=== PATIENT | female | born 1955 | race Caucasian/White ===

== ENCOUNTER 2017-07-04 14:30 | Inpatient (IN) | payer BC, OTHER ==
[~2017-07-04] VITALS: Ht 162.6 cm; Wt 72.6 kg
--- NOTE | 2017-07-04 18:15 | NUR ---
PRE-ASSESSMENT NOTE: PT IS ALERT AND ORIENTED AT THIS TIME. V/S WNL PT AGITATED AT THIS TIME, D/T INTAKE PROCESS AND PROCEDURE. PT IS UPSET ABOUT NOT BEING ABLE TO HAVE PERSONAL BELONGINGS WITH HER IN HER ROOM. PT IS ABLE TO SIGN CONSENT. EXPLAINED UNIT POLICIES AND PROCEDURES
[2017-07-04 19:43] LABS: *AMPHETAMINE, URINE NEGATIVE (NEGATIVE); *BARBITURATE, URINE NEGATIVE (NEGATIVE); *CANNABINOID, URINE NEGATIVE (NEGATIVE); *COCCAINE, URINE NEGATIVE (NEGATIVE); *OPIATE, URINE POSITIVE (NEGATIVE); *PHENCYCLIDINE SCREEN,URINE NEGATIVE (NEGATIVE)
[2017-07-04] MEDS ORDERED: CLONIDINE HCL 0.1 MG TABLET PO PRN (19:45)
[2017-07-04] MEDS ORDERED: LOPERAMIDE HCL 2 MG CAPSULE PO PRN ×2 (19:45)
[2017-07-04] MEDS ORDERED: ACETAMINOPHEN 325 MG TABLET PO PRN (19:45)
[2017-07-04] MEDS ORDERED: DICYCLOMINE HCL 20 MG TABLET PO PRN (19:45)
[2017-07-04] MEDS ORDERED: MIRALAX 17 GM POWD.PACK PO PRN (19:45)
[2017-07-04] MEDS ORDERED: diphenhydrAMINE 50 MG CAPSULE PO PRN (19:45)
[2017-07-04] MEDS ORDERED: HYDROXYZINE PAMOATE 25 MG CAPSULE PO PRN (19:45)
[2017-07-04] MEDS ORDERED: MAG HYDROX/AL HYDROX/SIMETH 30 ML LIQUID UDC PO PRN (19:45)
[2017-07-04] MEDS ORDERED: MAGNESIUM HYDROXIDE 30 ML LIQUID UDC PO PRN (19:45)
[2017-07-04] MEDS ORDERED: IBUPROFEN 400 MG TABLET PO PRN (19:45)
[2017-07-04 20:00] VITALS: BP 151/92
--- NOTE | 2017-07-04 20:00 | NUR ---
ADMISSION NOTE COWS:13 Pt arrived ambulatory from [facility] Intake to the third floor accompanied by a GAMBLING FLOOR SUPERVISOR at 1827. Pt is a 62 year old female admitted on 07/04/17 for Opiate dependency. Pt is full code with NKA. Pt reports a PMHX of neuropathy, diabetes type II, and rheumatoid arthritis. Pt brought in home medications which have been reconciled. Pt reports having a PCP in [place] by the name of Dr. Batres. She denies a history of seizures. She reports that she was at a Rehab for two weeks but unable to recall when. She was able to achieve one year of sobriety. Pt verbalized that she is here for Percocet dependency. She describes her current use as : 1. Percocet 10/325 (10 pills) daily x5 years. Last dose: 10 pills on 07/02/17. She describes her withdrawal symptoms as "sweating, chills, nausea, and diarrhea." Upon assessment, pt is alert and oriented to person, place, time and situation. Pt is restless, anxious and agitated, but cooperative. Speech is clear and audible. Heart rate is regular. Pt denies any chest pain or SOB. PERRLA, breathing is even and unlabored, lung sounds clear. Abdomen is soft and non-distended, bowel sounds present. Pt reports BM regular. Last BM 07/04/17. Pt's skin is warm, dry and intact. Pt noted with Right foot scar from breaking ankle 6 years ago, and left foot great amputation. Pt was apprehensive to remove socks for assessment / pictures of feet and became anxious and agitated. Pt was oriented to room and unit. made aware of pt's admission. Pt is safe with bed locked in lowest position, refused side rails, call light within reach. Will continue to monitor.
[2017-07-04] MEDS ORDERED: INSU100V11 (20:12)
[2017-07-04] MEDS ORDERED: TRIA80OI TP (20:12)
[2017-07-04] MEDS ORDERED: AMIT100T2 PO (20:12)
[2017-07-04] MEDS ORDERED: GABA800T2 PO (20:12)
[2017-07-04] MEDS ORDERED: SILV50CR TP (20:12)
[2017-07-04] MEDS: BUPRENORPHINE HCL 2 MG TAB.SUBL SL PRN (20:48)
--- NOTE | 2017-07-04 20:48 | NUR ---
PRN SUBUTEX Pt complains of chills, sweats, and body aches. COWS:13. PRN Subutex 4m SL administered as ordered. Breathing even and unlabored, safety measures in place. Will monitor effectiveness.
--- NOTE | 2017-07-04 20:50 | NUR ---
MD Communication: Patient has home medications and requests administration tonight. Received order from Dr Presley to continue Gabapentin 800mg QID. Received order from Dr Waite to continue Amitriptyline 100mg HS. Orders noted and carried out; orders entered on behalf of MD's as they are without computer access.
[2017-07-04] MEDS ORDERED: AMITRIPTYLINE HCL 50 MG TABLET PO SCH (21:00)
--- NOTE | 2017-07-04 21:48 | NUR ---
PRN SUBUTEX REASSESSMENT PRN Subutex effective. Pt reports decrease in withdrawal symptoms as evidenced by COWS:7. Breathing even and unlabored, safety measures in place. Will monitor.
[2017-07-04 21:57] LABS: ALANINE AMINOTRANSFERASE 12 U/L (14-59); ALKALINE PHOSPHATASE 127 U/L (50-136); ASPARTATE AMINOTRANSFERASE 17 U/L (15-37); BILIRUBIN,TOTAL 0.4 mg/dL (0.2-1.0); CARBON DIOXIDE 35 mmol/L (21-32); CHLORIDE 97 mmol/L (98-107); CREATININE 1.1 mg/dL (0.6-1.3); GLUCOSE 250 mg/dL (74-106); MAGNESIUM 1.7 mg/dL (1.8-2.4); POTASSIUM 4.1 mmol/L (3.5-5.1); TOTAL PROTEIN, SERUM 8.9 g/dL (6.4-8.2); UREA NITROGEN, BLOOD 13 mg/dL (7-18)
[2017-07-04] MEDS: GABAPENTIN 400 MG CAPSULE PO SCH (21:57)
[2017-07-04 21:59] LABS: BASOPHILS % (AUTO) 0.6 % (0.0-2.0); EOSINOPHILS # (AUTO) 0.2 K/uL (0.0-0.7); EOSINOPHILS % (AUTO) 2.6 % (0.0-7.0); HEMATOCRIT 37.2 % (37-47); HEMOGLOBIN 12.4 G/DL (12.0-16.0); LYMPHOCYTES % (AUTO) 24.8 % (20.5-51.5); MEAN CORPUSCULAR HEMOGLOBIN 30.6 UUG (27.0-31.0); MEAN CORPUSCULAR HGB CONC 33 g/dL (32.0-37.0); MONOCYTES # (AUTO) 0.4 K/UL (0.1-1.30); MONOCYTES % (AUTO) 4.3 % (0.0-11.0); NEUTROPHILS # (AUTO) 5.6 K/UL (1.8-8.9); NEUTROPHILS % (AUTO) 67.7 % (38.5-71.5); PLATELET COUNT (AUTO) 403 K/UL (150-450); RED BLOOD CELL COUNT(AUTO) 4.05 MIL/UL (4.2-5.4); WHITE BLOOD COUNT (AUTO) 8.2 K/UL (4.0-11.2)
[2017-07-04 22:01] LABS: ETHANOL < 3 MG/DL (0-0)
[2017-07-04] MEDS: METHOCARBAMOL 750 MG TABLET PO PRN (23:15)
--- NOTE | 2017-07-04 23:15 | NUR ---
PRN ROBAXIN Pt complains of body aches 07/24. PRN Robaxin administered as ordered. Breathing is even and unlabored. Safety measures in place. Will continue to monitor.
[2017-07-05] VITALS: BP 135/82
[2017-07-05] MEDS ORDERED: DEXTROSE 50% 50 ML DISP.SYRIN IV PRN
--- NOTE | 2017-07-05 00:15 | NUR ---
PRN ROBAXIN REASSESSMENT PRN medication effective. Pt lying in bed with eyes closed noted to be asleep. Respirations 16, breathing even and unlabored. Safety measures in place. Will monitor.
[2017-07-05] MEDS: INSULIN REGULAR, HUMAN 300 UNITS/3 ML VIAL SQ PRN ×2 (00:23→20:11)
--- NOTE | 2017-07-05 00:23 | NUR ---
ACCU CHECK 0000 BS: 255. Pt received 6 units of Humulin per sliding scale. Pt tolerated well. Will continue to monitor.
[2017-07-05] MEDS ORDERED: INSULIN REGULAR, HUMAN 300 UNIT/3 ML VIAL ONE (00:24)
[2017-07-05] MEDS ORDERED: INSU100I19 SQ (03:44)
[2017-07-05 04:30] VITALS: BP 139/85
[2017-07-05] MEDS: ONDANSETRON ODT 4 MG TAB.RAPDIS SL PRN ×2 (05:36→20:29)
[2017-07-05] MEDS: BUPRENORPHINE HCL 2 MG TAB.SUBL SL PRN (05:36)
--- NOTE | 2017-07-05 05:36 | NUR ---
PRN SUBUTEX/PRN ZOFRAN Pt complains of nausea, body aches, joint pain, agitation, and restlessness. COWS:12. PRN Zofran and Subutex administered as ordered. Breathing even and unlabored, safety measures in place. Will monitor.
--- NOTE | 2017-07-05 06:36 | NUR ---
PRN SUBUTEX/ZOFRAN REASSESSMENT PRN medications effective. Pt reports decrease in nausea. COWS: 8. Breathing even and unlabored, safety measures in place. Will monitor.
--- NOTE | 2017-07-05 07:07 | NUR ---
END OF SHIFT Pt is a 62 year old female admitted on 07/04/17 for Percocet dependency. Pt is full code with NKA. She reports a PMHx of neuropathy, diabetes type II, and rheumatoid arthritis. At 2048 she received PRN Subutex for COWS:13, at 2315 she received PRN Robaxin, and at 0553 she received PRN Zofran and Subutex for COWS 12. At 0000 her BS was 255. She received 6 units of Humulin and tolerated well. She slept a total of 6 hrs, Intake: 250 mL, Void: x1, BM:0, COWS:13. Pt remains alert and oriented x4, breathing is even and unlabored, safety measures in place. Endorsed to oncoming shift.
--- NOTE | 2017-07-05 07:30 | NUR ---
START OF SHIFT Pt is a 62 yr old female, A&Ox3. Pt was admitted on 07/04/17 for Opiate Dependence and is currently on Subutex PRN for s/s of w/d until further evaluation. Pt received Subutex PRN x2 during the night for s/s of w/d. Medication was mildly effective. Last COWS score was 12 at 0536. Pt slept for 6 hrs. Pt has PMH of DM II. Pt is on BS check ACHS. Pt is currently in bed, resting with respirations even and unlabored. Pt is c/o pain in both feet and of abdominal cramping. Pt is observed with flat affect. Pt denies any n/v. Encouraged increase increase fluid intake. Will continue to monitor.
[2017-07-05 08:00] VITALS: BP 146/88
[2017-07-05] MEDS: BLOOD SUGAR DIAGNOSTIC 1 EACH STRIP VI SCH ×5 (08:01→20:07)
[2017-07-05] MEDS: INSULIN REGULAR, HUMAN 300 UNIT/3 ML VIAL SQ PRN ×3 (08:11→17:11)
--- NOTE | 2017-07-05 08:30 | NUR ---
NSG NOTES Pt was c/o both feet pain and abdominal cramping 07/24. Facial grimacing was observed. Robaxin 750mg PRN and Motrin 400mg PRN was offered. Pt Refused to take medication to marine electrician helper with pain. Pt was encouraged to drink plenty of fluids. Pt was educated on medication regimen.
[2017-07-05] MEDS: GABAPENTIN 400 MG CAPSULE PO SCH ×4 (09:00→20:03)
[2017-07-05] MEDS: MULTIVITAMINS,THERAPEUTIC TABLET PO SCH (09:00)
[2017-07-05] MEDS ORDERED: TUBERCULIN,PURIF.PROT.DERIV. 5 TU/0.1 ML TEST ID ONE ×4 (09:00)
--- NOTE | 2017-07-05 09:10 | NUR ---
MEDICATION REFUSED Pt refused to take Neurontin 800mg and Multivitamin as scheduled at 0900. Pt stated of having abdominal cramping. Pt was educated on medication regimen but pt continued to refuse. Will continue to monitor
[2017-07-05] MEDS: BUPRENORPHINE HCL 2 MG TAB.SUBL SL SCH ×4 (10:23→20:03)
--- NOTE | 2017-07-05 10:23 | NUR ---
PRN GIVEN Pt c/o abdominal cramping. Bentyl 20mg PO PRN was given as ordered. Medication richy well. Will continue to monitor.
--- NOTE | 2017-07-05 11:23 | NUR ---
PRN RE-ASSESSMENT Bentyl PRN was mildly effective. Pt continue to c/o abdominal cramping but is able to richy pain level at this time. Encouraged increase fluid intake. Will continue to monitor.
[2017-07-05] MEDS ORDERED: MAGNESIUM OXIDE 400 MG TABLET PO ONE (11:30)
--- NOTE | 2017-07-05 11:30 | NUR ---
COMMUNICATION Reported to Dr. Eller in regards to lab values. Mg 1.7. Received new order for Mag-ox 800mg x1. New order was initiated by .
[2017-07-05 12:00] VITALS: BP 149/84
--- NOTE | 2017-07-05 14:46 | NUR ---
WOUND CARE CONSULT: PT PRESENTS WITH DIABETIC ULCER TO LEFT PLANTAR GREAT TOE, PRESENT ON ADMISSION. RECOMMENDATIONS MADE FOR WOUND CARE. DISCUSSED WITH NURSING STAFF. RECOMMEND DPM CONSULT. PT STATES HAS HER OWN DPM. WILL SEE PRN. KOHLI IN AGREEMENT WITH PLAN OF CARE. Addendum: 07/05/17 at 1447 by PHILLIP PERSAUD RN Amended: Links added.
[2017-07-05] MEDS ORDERED: DICYCLOMINE HCL 20 MG/2 ML AMPUL IM PRN (15:00)
--- NOTE | 2017-07-05 15:24 | NUR ---
MD COMMUNICATION/ PRN GIVEN Pt c/o severe abdominal cramping. Facial grimacing is observed. Notified Dr. Eller with new order for Bentyl 20mg IM PRN. New order was initiated by . Pt received Bentyl 20mg IM at 1522 for abdominal cramping. Medication was richy well. Will continue to monitor.
[2017-07-05] MEDS: CADEXOMER IODINE 40 GM TUBE TOP SCH (15:34)
[2017-07-05 16:00] VITALS: BP 142/82
--- NOTE | 2017-07-05 16:24 | NUR ---
PRN RE-ASSESSMENT Bentyl was mildly effective. Pt continues to c/o abdominal cramping. Encouraged increase fluid intake.
[2017-07-05] MEDS ORDERED: SILVER SULFADIAZINE 1% CREAM 50 GM TP SCH (17:00)
[2017-07-05] MEDS ORDERED: PATIENT MAY USE OWN MED- MD OK TOP SCH (17:00)
--- NOTE | 2017-07-05 17:20 | NUR ---
PRN GIVEN Pt c/o of gas pain. Maalox 30ml PRN was given. Will continue to monitor.
[2017-07-05] MEDS: METHOCARBAMOL 750 MG TABLET PO PRN (18:31)
--- NOTE | 2017-07-05 18:31 | NUR ---
PRN GIVEN Pt is c/o increase pain towards lower back and abdominal cramping. Facial grimacing is observed. Pt is restless. Robaxin 750 mg PO PRN was given. Medication richy well. Encouraged increase fluid intake. Will continue to monitor.
--- NOTE | 2017-07-05 19:10 | NUR ---
END OF SHIFT Pt is a 62 yr old female, A&Ox3. Pt was admitted on 07/04/17 for Opiate Dependence and started on 5 day Subutex taper as ordered. Medication richy well. Pt has been c/o abdominal pain and pain on BLE and lower back pain throughout the day. Pt was offered Motrin with Robaxin PRN for pain mgt. Pt refused to take Motrin but tool Robaxin 750mg PRN at 1831. Endorsed to screw machine set up operator tool nurse to re-assess. Pt also received Bentyl PO and Bentyl IM for abdominal cramping. Medication was mildly effective. Pt was encouraged to participate in group but pt refused. Pt was seen and examined by wound nurse for left toe. Wound tx started today on 07/05/17. Last COWS score was 13 at 1600. Safety precautions observed. Call light is within reach.
--- NOTE | 2017-07-05 19:15 | NUR ---
START OF SHIFT Received 62 year old female patient admitted on 07/04/17 for Opiate dependency. Pt is full code with NKA and follows a consistent carb diet. Pt reports a PMHx of depression, diabetes type II, neuropathy, and rheumatoid arthritis. Pt reports using Percocet 10/325 mg 10 pills daily for 6 years. Last dose was 10 pills on 07/02/17. Pt placed on 5 day Subutex taper started today 07/05/17 and tolerating well. Per endorsement, pt received multiple medications such as Robaxin, Bentyl,and Maalox. Pt refused Neurontin. She was seen by the treatment nurse for treatment of her ulcer on left foot. Last BS 155, she received 2 units. Pt is alert and oriented x4, complains of pain on left side, safety measures in place. Will continue to monitor.
--- NOTE | 2017-07-05 19:31 | NUR ---
PRN REASSESSMENT Pt reports PRN medication is somewhat effective. Pt still complains of left side pain, facial grimacing and agitation noted. Will continue to monitor.
[2017-07-05 20:00] VITALS: BP 111/73
--- NOTE | 2017-07-05 20:11 | NUR ---
ACCU CHECK BS:164, pt received 3 units of Humulin and tolerated well. Will continue to monitor.
--- NOTE | 2017-07-05 20:29 | NUR ---
PRN ZOFRAN Pt noted with nausea and one episode of emesis. PRN Zofran administered as ordered. Will monitor effectiveness.
--- NOTE | 2017-07-05 20:57 | NUR ---
MD Communication: Dr Eller contacted regarding pt with COWS 18: emesis x1, gross tremor, 10/10 pain, severe anxiety and agitation. Order received for Subutex 4mg ONCE and Ativan 2mg ONCE NOW. Order noted and carried out.
[2017-07-05] MEDS ORDERED: LORAZEPAM 1 MG TABLET PO ONE (21:00)
[2017-07-05] MEDS: INSULIN DETEMIR 300 UNIT/3 ML CARTRIDGE SQ SCH (21:00)
[2017-07-05] MEDS: AMITRIPTYLINE 100 MG PO SCH (21:00)
[2017-07-05] MEDS ORDERED: BUPRENORPHINE HCL 2 MG TAB.SUBL SL ONE ×2 (21:00→21:28)
--- NOTE | 2017-07-05 21:00 | NUR ---
MEDICATION REFUSAL Pt refused one time order of Subutex and Ativan. COWS:18 Pt stated " It will make me feel sick." Risks/benefits explained x3, pt still refused. Safety measures in place. Will monitor.
--- NOTE | 2017-07-05 21:00 | NUR ---
LEVEMIR REFUSED Pt refused 2100 dose of Levemir. Pt stated, "It's going to bring my sugar down too low." Risks and benefits were explained x3. Pt still refused. made aware. Will continue to monitor.
[2017-07-05] MEDS ORDERED: LORAZEPAM 1 MG TABLET ONE (21:28)
--- NOTE | 2017-07-05 21:29 | NUR ---
PRN ZOFRAN REASSESSMENT PRN medication effective. Pt reports decrease in nausea and did not report any emesis. Breathing even and unlabored, safety measures in place. Will monitor.
--- NOTE | 2017-07-05 21:48 | NUR ---
MD Communication: Dr Waite contacted for order to decrease scheduled Elavil from 100mg HS to 50mg HS as per pt request. New order received, repeated and carried out.
[2017-07-05] MEDS: AMITRIPTYLINE HCL 50 MG TABLET PO SCH (22:07)
[2017-07-06] VITALS (9 sets, daily range): BP systolic 100–176; BP diastolic 48–95
--- NOTE | 2017-07-06 | NUR ---
COWS DEFERRED COWS deferred d/t pt lying in bed with eyes closed noted to be asleep. Respirations 16, breathing is even and unlabored. Safety measures in place. Will monitor.
--- NOTE | 2017-07-06 02:11 | NUR ---
MD Communication: Pt reports 08/23 from myalgia concentrated on left side. Order received for Baclofen 20mg x1 now. Order noted and carried out.
[2017-07-06] MEDS ORDERED: BACLOFEN 20 MG TABLET PO ONE ×2 (02:15→09:45)
--- NOTE | 2017-07-06 02:18 | NUR ---
ONE TIME ORDER Pt complains of left side aching pain 08/23. Baclofen x1 administered as ordered. Breathing even and unlabored, safety measures in place. Will monitor effectiveness.
--- NOTE | 2017-07-06 03:18 | NUR ---
REASSESSMENT One time order of Baclofen ineffective. Pt still complains of pain, observed with facial grimacing, and agitation. Safety measures in place. Will monitor.
[2017-07-06] MEDS: METHOCARBAMOL 750 MG TABLET PO PRN (03:36)
--- NOTE | 2017-07-06 03:36 | NUR ---
PRN ROBAXIN Pt complains of body aches 07/24. PRN Robaxin administered as ordered. Breathing even and unlabored, safety measures in place. Will monitor effectiveness.
--- NOTE | 2017-07-06 04:36 | NUR ---
PRN ROBAXIN REASSESSMENT PRN medication effective. Pt is lying in bed with eyes closed noted to be asleep. No facial grimacing noted. Safety measures in place. Will monitor.
--- NOTE | 2017-07-06 07:08 | NUR ---
END OF SHIFT Pt is a 62 year old female patient admitted on 07/04/17 for Opiate dependency. Pt is full code with NKA and follows a consistent carb diet. Pt reports a PMHx of depression, diabetes type II, neuropathy, and rheumatoid arthritis. Pt continues on 5 day Subutex taper started on 07/05/17 and tolerating well. Pt refused Levemir. At 2028 pt received PRN Zofran, at 217 pt received PRN Baclofen, at 335 pt received PRN Robaxin. Last BS was 164, she received 3 units. She slept a total of 6hrs, Intake: 1250mL, void: x2, BM:x1, Emesis: x1. COWS:7. Pt remains alert and oriented x4, complains of pain on left side, safety measures in place. Endorsed to oncoming shift.
--- NOTE | 2017-07-06 07:30 | NUR ---
Start of shift note; Received report from night nurse. Patient is a 62 year old female admitted on 07/04/17 for Opiate withdrawals. Patient was placed on a 5 day Subutex taper. Patient is on a consistent carb diet, NKA, full code status. Patient reported history of depression, diabetes type 2, neuropathy and rheumatoid arthritis. Patient received PRN Zofran, baclofen and Robaxin last night all noted to be effective. All safety measures secured. Will continue to monitor patient.
[2017-07-06] MEDS: BLOOD SUGAR DIAGNOSTIC 1 EACH STRIP VI SCH ×4 (07:58→21:21)
[2017-07-06] MEDS: INSULIN REGULAR, HUMAN 300 UNIT/3 ML VIAL SQ PRN ×3 (08:14→16:57)
--- NOTE | 2017-07-06 08:14 | NUR ---
Insulin administration; Patient's blood sugar noted to be 177mg/dl. Humulin R insulin administered sliding scale protocol, 3 units was given AC. Will closely monitor patient.
[2017-07-06] MEDS: BUPRENORPHINE HCL 2 MG TAB.SUBL SL SCH ×3 (08:15→21:46)
[2017-07-06] MEDS: GABAPENTIN 400 MG CAPSULE PO SCH ×4 (08:15→21:47)
[2017-07-06] MEDS: CADEXOMER IODINE 40 GM TUBE TOP SCH (08:15)
[2017-07-06] MEDS: MULTIVITAMINS,THERAPEUTIC TABLET PO SCH (08:15)
--- NOTE | 2017-07-06 09:45 | NUR ---
New order; ordered Baclofen 20mg times one now for muscle spasms.
--- NOTE | 2017-07-06 10:00 | NUR ---
Medication refusal; Patient refused to take Baclofen, patient stated " i do not want to take any other medication other than Opiates". Educated patient regarding the unit protocol and policies and her treatment plan, Patient verbalized understanding. MD was notified regarding patient's refusal to medication. Will continue to monitor patient.
[2017-07-06 10:08] LABS: HEPATITIS B SURFACE AG Negative (Negative)
[2017-07-06] MEDS ORDERED: LORAZEPAM 1 MG TABLET PO PRN (12:30)
[2017-07-06] MEDS ORDERED: KETOROLAC TROMETHAMINE 30 MG INJ IM PRN (12:30)
[2017-07-06] MEDS: DICYCLOMINE HCL 20 MG TABLET PO SCH ×2 (14:01→21:48)
[2017-07-06] MEDS: BACLOFEN 20 MG TABLET PO SCH ×2 (14:01→21:48)
[2017-07-06] MEDS ORDERED: LIDOCAINE 5% PATCH TD SCH (15:00)
--- NOTE | 2017-07-06 17:05 | NUR ---
Accu-check; Accu check done, obtained 193 mg/dl. Humulin R 3 units given SQ per insulin sliding scale. Will continue to monitor patient.
--- NOTE | 2017-07-06 18:55 | NUR ---
End of shift note; Patient is AOX4. Patient is a 62 year old female admitted on 07/04/17 for Opiate withdrawals. Patient was placed on a 5 day Subutex taper. Patient is on a consistent carb diet, NKA, full code status. Patient reported history of depression, diabetes type 2, neuropathy and rheumatoid arthritis. Medications were effective in reducing withdrawal symptoms. Patient is on fall precautions. Bed in lowest position, call light within reach. Met all needs.
--- NOTE | 2017-07-06 19:15 | NUR ---
Start of Shift Note: Received pt from day shift nurse. Patient is a 62 y/o female admitted on 07/04/17 for Opiate dependence. Patient reported taking 10 pills of 10/325mg daily for 6 years. Patient has medical history of Depression, Diabetes II, Neuropathy, & Rheumatoid Arthritis. Patient with no seizure history. Patient is on a regular diet with no known food and drug allergies. Full Code status. Fall precaution noted. Patient is on a 5-day Subutex taper and tolerating well. Last COWS is 6. Patient is alert & oriented x4. Patient is in bed and arousible to verbal and tactile stimulation. Patient noted to be flat in affect. No shortness of breath noted. Respiration even & unlabored. Abdomen soft & non-distended. Patient denies pain & discomfort. Abdomen soft & non-distended. No nausea/vomiting noted. Bilateral hand tremors noted. Safety measures in place. Bed locked in lowest position. Both side rails up. Call light within pt's reach. Will continue to monitor patient.
[2017-07-06] MEDS: AMITRIPTYLINE 100 MG PO SCH (21:00)
[2017-07-06] MEDS ORDERED: DULOXETINE 30 MG CAPSULE.DR PO SCH (21:00)
[2017-07-06] MEDS ORDERED: NAPROXEN 500 MG TABLET PO SCH (21:00)
--- NOTE | 2017-07-06 21:21 | NUR ---
Accu-check: Scheduled Accu check done, Noted a blood sugar of 237mg/dl. Humulin R 4 units given SQ per insulin sliding scale. Will continue to monitor patient.
--- NOTE | 2017-07-06 21:47 | NUR ---
PRN Clonidine Patient noted with a B/P 176/95, GA 104, RR16, Temp 98.0, O2Sat 98%. PRN Clonidine 0.1mg PO administered as ordered. Will reassess in 1 hour. Will continue to monitor patient.
[2017-07-06] MEDS: AMITRIPTYLINE HCL 50 MG TABLET PO SCH (21:49)
[2017-07-06] MEDS: INSULIN DETEMIR 300 UNIT/3 ML CARTRIDGE SQ SCH (21:52)
[2017-07-06] MEDS: INSULIN REGULAR, HUMAN 300 UNITS/3 ML VIAL SQ PRN (21:57)
--- NOTE | 2017-07-06 22:50 | NUR ---
PRN reassessment Rechecked Vitals. Pt noted with B/P 100/59, LA 93, O2sat 100%. Will continue to monitor patient.
[2017-07-07] MEDS: ONDANSETRON ODT 4 MG TAB.RAPDIS SL PRN (00:21)
--- NOTE | 2017-07-07 00:21 | NUR ---
PRN Zofran SL Patient vomited moderate amount of stomach contents. Zofran 4mg SL given as ordered. Will reassess in 1 hour. Will continue to monitor.
[2017-07-07 00:30] VITALS: BP 147/87
[2017-07-07] MEDS ORDERED: BLOOD SUGAR DIAGNOSTIC 1 EACH STRIP VI ONE (00:45)
--- NOTE | 2017-07-07 00:45 | NUR ---
Pt observed with altered level of consciousness. Patient appears drowsy and only responsive to painful stimulation. Dr. Presley notified with orders to placed pt on a 1:1 supervision for close monitoring. Will continue to monitor patient.
[2017-07-07] MEDS ORDERED: PROMETHAZINE HCL 25 MG/1 ML VIAL IM ONE (01:15)
--- NOTE | 2017-07-07 01:26 | NUR ---
PRN Phenergan Patient had another episode of vomiting. Patient vomited moderate amount of stomach contents. PRN Zofran 4mg was not effective. Notifed Dr. Presley with orders noted and carried out. Administered Phenergan IM on right deltoid as ordered. Will reassess in 1 hour. Will continue to monitor.
[2017-07-07] MEDS ORDERED: PROMETHAZINE HCL 25 MG/1 ML VIAL ONE (01:31)
--- NOTE | 2017-07-07 01:33 | NUR ---
Accucheck Accucheck done as ordered. Noted a blood sugar of 174mg/dl.
--- NOTE | 2017-07-07 03:15 | NUR ---
Patient still noted to be confused and only responsive to painful stimuli. Pt not alert & oriented. Vitals 180/89, UT 104, RR 16, O2Sat 94%, Temp 98.1. Patient still with vomiting episodes. MD made aware with order to transfer pt to ER for altered mental status.
--- NOTE | 2017-07-07 06:00 | NUR ---
ER called that pt will be transferred to [facility] unit.
[2017-07-07] MEDS ORDERED: GABA800T2 PO (06:11)
[2017-07-07] MEDS ORDERED: CADE40GE2 TP (06:11)
[2017-07-07] MEDS ORDERED: DIPH50CA37 PO (06:11)
[2017-07-07] MEDS ORDERED: DEXT50DI8 IV (06:11)
[2017-07-07] MEDS ORDERED: AMIT50TA17 PO (06:11)
[2017-07-07] MEDS ORDERED: BUPR2TAB3 SL (06:11)
[2017-07-07] MEDS ORDERED: FAMO-132 PO (06:11)
[2017-07-07] MEDS ORDERED: DICY20TA11 PO (06:11)
[2017-07-07] MEDS ORDERED: DULO30CA2 PO (06:11)
[2017-07-07] MEDS ORDERED: BACL20TA PO (06:11)
[2017-07-07] MEDS ORDERED: BUPR8TAB4 SL ×2 (06:11)
[2017-07-07] MEDS ORDERED: ACET-2154 PO (06:11)
[2017-07-07] MEDS ORDERED: CLON0.1T14 PO (06:11)
[2017-07-07] MEDS ORDERED: POLY17PO4 PO (06:12)
[2017-07-07] MEDS ORDERED: KETO30VI4 IM (06:12)
[2017-07-07] MEDS ORDERED: LIDO30AD10 TD (06:12)
[2017-07-07] MEDS ORDERED: ONDA4TAB8 PO (06:12)
[2017-07-07] MEDS ORDERED: MULT-24 (06:12)
[2017-07-07] MEDS ORDERED: MULT-24 PO (06:12)
[2017-07-07] MEDS ORDERED: MAG355OR18 PO (06:12)
[2017-07-07] MEDS ORDERED: METH500T PO (06:12)
[2017-07-07] MEDS ORDERED: MAG30ORA GT (06:12)
[2017-07-07] MEDS ORDERED: HYDR25CA PO (06:12)
[2017-07-07] MEDS ORDERED: LORA2TAB PO (06:12)
[2017-07-07] MEDS ORDERED: MAGN400O6 PO (06:12)
[2017-07-07] MEDS ORDERED: NAPR500T PO (06:12)
[2017-07-07] MEDS ORDERED: INSU100V10 SQ (06:12)
[2017-07-07] MEDS ORDERED: PROM25VI IM (06:12)
[2017-07-07] MEDS ORDERED: LOPE2CAP40 PO (06:12)
[2017-07-07] MEDS ORDERED: FAMOTIDINE 20 MG TABLET PO SCH (09:00)
[2017-07-07] MEDS ORDERED: BUPRENORPHINE HCL 2 MG TAB.SUBL SL SCH ×2 (09:00→15:00)
[2017-07-08] MEDS ORDERED: BUPRENORPHINE HCL 2 MG TAB.SUBL SL SCH (09:00)
[2017-07-09] MEDS ORDERED: BUPRENORPHINE HCL 2 MG TAB.SUBL SL SCH (09:00)
== END 2017-07-07 06:00 | disposition short-term general hospital (02) | DRG 895 ==
LOC: SRC 17:39
PROVIDERS: ADMIT Internal Medicine; ATTEND Internal Medicine
PROC: HZ2ZZZZ Detoxification Services for Substance Abuse Treatment (ICD-10-PCS; principal; 2017-07-04)
PROC: HZ51ZZZ Individual Psychotherapy for Substance Abuse Treatment, Behavioral (ICD-10-PCS; 2017-07-06)
DX: F11.23 Opioid dependence with withdrawal (principal); E87.3 Alkalosis; E11.40 Type 2 diabetes mellitus with diabetic neuropathy, unspecified; E11.621 Type 2 diabetes mellitus with foot ulcer; E87.1 Hypo-osmolality and hyponatremia; E11.610 Type 2 diabetes mellitus with diabetic neuropathic arthropathy; G89.29 Other chronic pain; L97.529 Non-pressure chronic ulcer of other part of left foot with unspecified severity; M06.9 Rheumatoid arthritis, unspecified; I15.9 Secondary hypertension, unspecified; E86.0 Dehydration; E83.42 Hypomagnesemia; E87.8 Other disorders of electrolyte and fluid balance, not elsewhere classified; M19.90 Unspecified osteoarthritis, unspecified site; Z83.3 Family history of diabetes mellitus; Z79.4 Long term (current) use of insulin; Z90.49 Acquired absence of other specified parts of digestive tract; R41.82 Altered mental status, unspecified
CPT/HCPCS: 36415; 80307; 80361; 83735; 85025; 86580; 86592; 86705; 86803; 87340; 87806; A4663; G0480; J0500; J1815; J2550; Q0162

== ENCOUNTER 2017-07-07 03:24 | Inpatient (IN) | payer BC, OTHER ==
[~2017-07-07] VITALS: Ht 172.7 cm; Wt 86.2 kg
[~2017-07-07 03:24] MED LIST: AMIT100T2 PO; GABA800T2 PO; INSU100I19 SQ; INSU100V11; SILV50CR TP; TRIA80OI TP
[2017-07-07 04:24] LABS: BASOPHILS % (AUTO) 0.5 % (0.0-2.0); EOSINOPHILS # (AUTO) 0.1 K/uL (0.0-0.7); EOSINOPHILS % (AUTO) 1.1 % (0.0-7.0); HEMATOCRIT 35.3 % (37-47); HEMOGLOBIN 11.6 G/DL (12.0-16.0); LYMPHOCYTES # (AUTO) 0.9 K/UL (0.8-4.8); LYMPHOCYTES % (AUTO) 10.5 % (20.5-51.5); MEAN CORPUSCULAR HEMOGLOBIN 30.4 UUG (27.0-31.0); MEAN CORPUSCULAR HGB CONC 33 g/dL (32.0-37.0); MEAN CORPUSCULAR VOLUME 92.1 FL (81.0-99.0); MONOCYTES # (AUTO) 0.4 K/UL (0.1-1.30); MONOCYTES % (AUTO) 4.8 % (0.0-11.0); NEUTROPHILS # (AUTO) 7.1 K/UL (1.8-8.9); NEUTROPHILS % (AUTO) 83.1 % (38.5-71.5); PLATELET COUNT (AUTO) 450 K/UL (150-450); RED BLOOD CELL COUNT(AUTO) 3.84 MIL/UL (4.2-5.4); WHITE BLOOD COUNT (AUTO) 8.5 K/UL (4.0-11.2)
[2017-07-07 04:35] LABS: ETHANOL < 3 MG/DL (0-0)
[2017-07-07 04:40] LABS: ABG BASE EXCESS 3.5 mmol/L; ABG PCO2 47.8 mmHg (35.0-45.0); ABG PH 7.401 (7.350-7.450); ABG PO2 140.8 mmHg (75.0-100.0); ABG SITE RIGHT BRACHIAL; ABG TOTAL HEMOGLOBIN 12.3 G/dL (12.0-16.0); MetHb 0.3 % (0.0-1.5); O2Hb 97.8 % (94.0-97.0)
[2017-07-07 04:42] LABS: CARBON DIOXIDE 33 mmol/L (21-32); CHLORIDE 99 mmol/L (98-107); CREATININE 1.6 mg/dL (0.6-1.3); GLUCOSE 155 mg/dL (74-106); POTASSIUM 3.5 mmol/L (3.5-5.1); UREA NITROGEN, BLOOD 22 mg/dL (7-18)
[2017-07-07 04:46] LABS: ACETAMINOPHEN < 2.0 ug/mL (10-30); ALANINE AMINOTRANSFERASE 12 U/L (14-59); ALKALINE PHOSPHATASE 113 U/L (50-136); ASPARTATE AMINOTRANSFERASE 20 U/L (15-37); BILIRUBIN,DIRECT 0.1 mg/dL (0.0-0.2); BILIRUBIN,TOTAL 0.3 mg/dL (0.2-1.0); TOTAL PROTEIN, SERUM 8.1 g/dL (6.4-8.2)
[2017-07-07 05:08] LABS: *BILIRUBIN,URIN NEGATIVE (NEGATIVE); *BLOOD, URINE Trace-intact (NEGATIVE); *CLARITY,URINE CLEAR (CLEAR); *COLOR,URINE YELLOW (YELLOW); *KETONES,URINE NEGATIVE (NEGATIVE); *PROTEIN,URINE 1+ (NEGATIVE); *UROBILINOGEN,URINE 0.2 E.U./dl (NORMAL); LEUKOCYTE ESTERASE ,URINE NEGATIVE (NEGATIVE); NITRITE, URINE NEGATIVE (NEGATIVE); UGLUCOSE TRACE (NEGATIVE)
[2017-07-07 05:16] LABS: BACTERIA,URINE FEW /HPF (NONE SEEN); SQUAMOUS EPITHELIAL CELL,UR FEW /HPF (NONE SEEN); WBC,URINE 0-3 /HPF (0-3)
[2017-07-07 05:19] LABS: *AMPHETAMINE, URINE NEGATIVE (NEGATIVE); *BARBITURATE, URINE NEGATIVE (NEGATIVE); *CANNABINOID, URINE NEGATIVE (NEGATIVE); *COCCAINE, URINE NEGATIVE (NEGATIVE); *OPIATE, URINE POSITIVE (NEGATIVE); *PHENCYCLIDINE SCREEN,URINE NEGATIVE (NEGATIVE)
--- NOTE | 2017-07-07 05:40 | NUR ---
PAGE EPPIC PANEL DR BREWER REQUESTED FOR ADMISSION. WAITING FOR DR OLVERA TO CALL BACK
[2017-07-07] MEDS ORDERED: DEXT50DI8 IV (06:11)
[2017-07-07] MEDS ORDERED: ACET-2154 PO (06:11)
[2017-07-07] MEDS ORDERED: DULO30CA2 PO (06:11)
[2017-07-07] MEDS ORDERED: BUPR8TAB4 SL ×2 (06:11)
[2017-07-07] MEDS ORDERED: AMIT50TA17 PO (06:11)
[2017-07-07] MEDS ORDERED: BUPR2TAB3 SL (06:11)
[2017-07-07] MEDS ORDERED: GABA800T2 PO (06:11)
[2017-07-07] MEDS ORDERED: CADE40GE2 TP (06:11)
[2017-07-07] MEDS ORDERED: DIPH50CA37 PO (06:11)
[2017-07-07] MEDS ORDERED: DICY20TA11 PO (06:11)
[2017-07-07] MEDS ORDERED: FAMO-132 PO (06:11)
[2017-07-07] MEDS ORDERED: CLON0.1T14 PO (06:11)
[2017-07-07] MEDS ORDERED: BACL20TA PO (06:11)
[2017-07-07] MEDS ORDERED: METH500T PO (06:12)
[2017-07-07] MEDS ORDERED: MULT-24 PO (06:12)
[2017-07-07] MEDS ORDERED: HYDR25CA PO (06:12)
[2017-07-07] MEDS ORDERED: PROM25VI IM (06:12)
[2017-07-07] MEDS ORDERED: MULT-24 (06:12)
[2017-07-07] MEDS ORDERED: MAG30ORA GT (06:12)
[2017-07-07] MEDS ORDERED: NAPR500T PO (06:12)
[2017-07-07] MEDS ORDERED: ONDA4TAB8 PO (06:12)
[2017-07-07] MEDS ORDERED: LORA2TAB PO (06:12)
[2017-07-07] MEDS ORDERED: LIDO30AD10 TD (06:12)
[2017-07-07] MEDS ORDERED: KETO30VI4 IM (06:12)
[2017-07-07] MEDS ORDERED: MAG355OR18 PO (06:12)
[2017-07-07] MEDS ORDERED: INSU100V10 SQ (06:12)
[2017-07-07] MEDS ORDERED: LOPE2CAP40 PO (06:12)
[2017-07-07] MEDS ORDERED: MAGN400O6 PO (06:12)
[2017-07-07] MEDS ORDERED: POLY17PO4 PO (06:12)
--- NOTE | 2017-07-07 07:00 | NUR ---
report given to daysneft nurse....
--- NOTE | 2017-07-07 07:12 | NUR ---
Pt. admitted to [facility] , under care of Dr. OLVERA, Belongs List completed...
--- NOTE | 2017-07-07 07:35 | NUR ---
NEW ADMISSION RECEIVED TO ROOM 206. PATIENT RESPONSIVE TO TOUCH AND ABLE TO FOLLOW DIRECTIONS. NON VERBAL AT THIS TIME. [facility] ADMINISTRATOR.
[2017-07-07 08:00] VITALS: BP 130/91
--- NOTE | 2017-07-07 09:00 | NUR ---
PATIENT IS APHASIC AT THIS TIME. MEDICAL HISTORY OBTAINED FROM MEDICAL RECORDS.
--- NOTE | 2017-07-07 10:30 | NUR ---
PATIENT SEEN BY ARIELLE BAE NP.
[2017-07-07 11:51] VITALS: BP 169/80
[2017-07-07 16:10] VITALS: BP 150/58
[2017-07-07 19:47] VITALS: BP 147/79
[2017-07-08] VITALS: BP 126/62
--- NOTE | 2017-07-08 00:01 | NUR ---
Minimal cognitive response. Resisting nursing cares. HOB elevated 30 degrees. was in at 1900 hours tonight.
[2017-07-08 04:00] VITALS: BP 146/77
[2017-07-08 06:49] LABS: BASOPHILS % (AUTO) 0.5 % (0.0-2.0); EOSINOPHILS # (AUTO) 0.2 K/uL (0.0-0.7); EOSINOPHILS % (AUTO) 2.4 % (0.0-7.0); HEMATOCRIT 35.2 % (37-47); HEMOGLOBIN 11.6 G/DL (12.0-16.0); LYMPHOCYTES # (AUTO) 1.8 K/UL (0.8-4.8); LYMPHOCYTES % (AUTO) 22.3 % (20.5-51.5); MEAN CORPUSCULAR HEMOGLOBIN 30.4 UUG (27.0-31.0); MEAN CORPUSCULAR HGB CONC 33 g/dL (32.0-37.0); MEAN CORPUSCULAR VOLUME 92.6 FL (81.0-99.0); MONOCYTES # (AUTO) 0.6 K/UL (0.1-1.30); MONOCYTES % (AUTO) 7.5 % (0.0-11.0); NEUTROPHILS # (AUTO) 5.3 K/UL (1.8-8.9); NEUTROPHILS % (AUTO) 67.3 % (38.5-71.5); PLATELET COUNT (AUTO) 455 K/UL (150-450); RED BLOOD CELL COUNT(AUTO) 3.81 MIL/UL (4.2-5.4); WHITE BLOOD COUNT (AUTO) 7.9 K/UL (4.0-11.2)
[2017-07-08 07:02] LABS: BILIRUBIN,TOTAL 0.3 mg/dL (0.2-1.0); PHOSPHOROUS 3.1 mg/dL (2.5-4.9); POTASSIUM 3.8 mmol/L (3.5-5.1); TOTAL PROTEIN, SERUM 7.9 g/dL (6.4-8.2)
--- NOTE | 2017-07-08 07:10 | NUR ---
PATIENT RECEIVED IN ROOM RESTING WITH EYES CLOSED IN NO ACUTE DISTRESS. RESPIRATIONS EVEN AND UNLABORED. IVF RUNNING. DVT PUMPS AND FALL PRECAUTIONS IN PLACE.
[2017-07-08 08:11] LABS: MAGNESIUM 2.1 mg/dL (1.8-2.4)
--- NOTE | 2017-07-08 08:18 | NUR ---
Unable to give medications due to patient not eating at this time. Family updated and at bedside.
--- NOTE | 2017-07-08 10:30 | NUR ---
PATIENT SEEN BY ARIELLE BAE GLAZIER METAL FURNITURE. DETAILED REPORT GIVEN. ARIELLE, SPOKE TO PATIENT'S REGARDING PLAN OF CARE.
[2017-07-08 11:16] VITALS: BP 122/80
--- NOTE | 2017-07-08 12:11 | NUR ---
PATIENT TAKEN FOR MRI AT THIS TIME IN A STABLE CONDITION.
--- NOTE | 2017-07-08 13:33 | NUR ---
PATIENT RETURNED FROM MRI.
[2017-07-08 15:13] VITALS: BP 148/66
--- NOTE | 2017-07-08 15:32 | NUR ---
WOUND CARE CONSULT: PT PRESENTS WITH LEFT GREAT TOE PLANTAR DM ULCER, PRESENT ON ADMISSION. RECOMMEND DPM CONSULT. RECOMMENDATIONS MADE FOR WOUND CARE AND SKIN PROTECTION. DISCUSSED WITH NURSING STAFF. ALL SKIN PROTECTION MEASURES IN PLACE. WILL SEE PRN. KOHLI IN AGREEMENT WITH PLAN OF CARE. DR VARGHESE CONSULTED BY PEG LAWRENCE AND WILL SEE PT. Addendum: 07/08/17 at 1534 by PHILLIP PERSAUD RN Amended: Links added. Addendum: 07/08/17 at 1535 by PHILLIP PERSAUD RN PT NOTED TO HAVE REPETITIVE MOVEMENTS OF ARMS AND LEGS. AT BEDSIDE.
--- NOTE | 2017-07-08 18:22 | NUR ---
END OF SHIFT NOTE: PATIENT IN NO ACUTE DISTRESS THROUGHOUT SHIFT. NO S/S OF PAIN OBSERVED. VSS. CONTINUES WITH POOR APPETITE. PO INTAKE ENCOURAGED. IVF RUNNING D5NS AT 75 ML/HR. PATIENT PARTICIPATED WITH PT AND TOLERATED WELL. TURNED AND REPOSITIONED EVERY 2 HOURS AND PRN. NEEDS MET BY STAFF.
--- NOTE | 2017-07-08 18:30 | NUR ---
PATIENT SEEN BY DR. WHATLEY. REPORT GIVEN.
--- NOTE | 2017-07-08 19:50 | NUR ---
PATIENT LYING ON BED. ALERT AND AWAKE.SHE DIDN'T TOLD HER NAME, DATE AND PLACE. DHE STATED "I DON'T KNOW" . NO DISTRESS NOTED.SHE DRANK SOME WATER AND ATE SOME APPLE SAUCE.CENTRAL LINE RIGHT FEMORAL DRESSING CLEAN AND INTACT. IV FLUID INFUSING ORDERED.F/C INTACT AND DRAINING YELLOW URINE. WILL CONTINUE TO MONITOR. SAFETY MEASURES OBSERVED
[2017-07-08 20:00] VITALS: BP 155/73
--- NOTE | 2017-07-08 20:10 | NUR ---
SHE STARTED SHOUTING SHE REFUSED NURSE ENTERING HER ROOM. NO COMBATIVENESS NOTED. SHE SHOUTED "LEAVE THE ROOM". WILL CONTINUE TO MONITOR
--- NOTE | 2017-07-08 20:20 | NUR ---
EEG IS DONE AT PATIENT ROOM AT THE BED SIDE
--- NOTE | 2017-07-08 21:00 | NUR ---
PATIENT AWAKE AND ALERT ON BED, FOLLOWS INSTRUCTIONS. CALM AND CO OPERATIVE . BS CHECK DONE WITH RESULT 162
--- NOTE | 2017-07-08 21:15 | NUR ---
OFFERED JUICE AND SNACK. SHE DRANK ABOUT 60 CC OF JUICE. TRIED TO GAVE NESTOR MEDICATION . SHE REFUSED IT AND SHE DOES NOT WANT TO OPEN HER MOUTH. WILL TRY LATER
--- NOTE | 2017-07-08 21:30 | NUR ---
TRIED AGAIN TO GIVE THE MEDICATIONS. SHE REFUSED OPEN MOUTH AND TAKE THE MEDICATION.
--- NOTE | 2017-07-09 | NUR ---
PATIENT INTERMITTENTLY SLEEPING. NON COMPLIANT WITH PATIENT CARE. SHE REFUSED ANY ONE IN THE ROOM. REFUSED IV FLUID.
--- NOTE | 2017-07-09 02:30 | NUR ---
PATIENT SHOUTING ON AND OFF. PRN ANXIETY MEDICATION GIVEN TO THE PATIENT
--- NOTE | 2017-07-09 03:30 | NUR ---
PATIENT COOPERATIVE AT THIS TIME. PATIENT CARE PROVIDED. F/C DRAINING YELLOW URINE. CENTRAL LINE DRESSING ON RIGTH FEMORAL IS INTACT. REFUSED TO CHANGE THE DRESSING.
--- NOTE | 2017-07-09 04:30 | NUR ---
B/P NOTED 183/85. PRN B/P MEDICATION GIVEN . PATIENT TOOK THE PO MEDICATION . WILL CONTINUE TO MONITOR.
[2017-07-09 04:52] VITALS: BP 181/85
--- NOTE | 2017-07-09 06:15 | NUR ---
B/P RECHECKED WITH THE RESULT 166/81. PATIENT ASYMPTOMATIC. WILL CONTINUE TO MONITOR
--- NOTE | 2017-07-09 11:00 | NUR ---
1100---PATEL D/C'D 1500---VOIDED X1. DJ=845/100--YE=859. V/S REPORTED TO ARIELLE AIRLINE STEWARDESS. PT. ASKED TO TAKE HER MEDS THAT SHE REFUSED THIS AM.--SHE WOULD ONLY TAKE THE AMLODIPINE 10 MG. PT. WAS ASKED TO STAY IN HOSPITAL UNTIL HER BP WENT DOWN. PT. INFORMED OF THE DANGER OF CVA AND OTHER RISKS OF UNCONTROLLED BP. PT. AGREED TO WAIT 20 MINUTES. ARIELLE NOTIFIED. 1530--BP 179/110-FE=456. ARIELLE NOTIFIED. PT. REFUSING TO STAY IN HOSPITAL. RISKS OF THIS BP REVIEWED WITH PT.. PT. INSTRUCTED TO CHECK HER BP WHEN SHE GOT HOME AND TAKE THE CLONIDINE PRESCRIBED. PT. ESCORTED TO EXIT VIA W/C BY VOLUNTEER PICKED UP BY --CARTER..ALL INSTRUCTIONS AND RISKS REVIEWED. WITH PT. AND MULTIPLE TIMES BUT THEY REFUSED TO STAY. PT. WILL KNOWINGLY LEAVE AMA. ARIELLE NOTIFIED OF AMA DISCHARGE.
[2017-07-09 11:17] LABS: BASOPHILS % (AUTO) 0.6 % (0.0-2.0); EOSINOPHILS # (AUTO) 0.1 K/uL (0.0-0.7); EOSINOPHILS % (AUTO) 2.1 % (0.0-7.0); HEMATOCRIT 35.4 % (37-47); HEMOGLOBIN 11.5 G/DL (12.0-16.0); LYMPHOCYTES # (AUTO) 1.6 K/UL (0.8-4.8); LYMPHOCYTES % (AUTO) 23.5 % (20.5-51.5); MEAN CORPUSCULAR HGB CONC 32 g/dL (32.0-37.0); MEAN CORPUSCULAR VOLUME 92.6 FL (81.0-99.0); MONOCYTES # (AUTO) 0.5 K/UL (0.1-1.30); MONOCYTES % (AUTO) 6.7 % (0.0-11.0); NEUTROPHILS # (AUTO) 4.6 K/UL (1.8-8.9); NEUTROPHILS % (AUTO) 67.1 % (38.5-71.5); PLATELET COUNT (AUTO) 465 K/UL (150-450); RED BLOOD CELL COUNT(AUTO) 3.83 MIL/UL (4.2-5.4); WHITE BLOOD COUNT (AUTO) 6.8 K/UL (4.0-11.2)
[2017-07-09 11:18] VITALS: BP 156/80
[2017-07-09 11:30] LABS: BILIRUBIN,TOTAL 0.3 mg/dL (0.2-1.0); CREATININE 0.7 mg/dL (0.6-1.3); MAGNESIUM 1.9 mg/dL (1.8-2.4); PHOSPHOROUS 2.4 mg/dL (2.5-4.9); POTASSIUM 3.6 mmol/L (3.5-5.1)
[2017-07-09] MEDS ORDERED: AMLO10TA2 PO (14:26)
[2017-07-09] MEDS ORDERED: CLON0.1T14 PO (14:26)
[2017-07-09] MEDS ORDERED: ATOR10TA PO (14:26)
[2017-07-09 15:00] VITALS: BP 177/100
--- NOTE | 2017-07-09 15:30 | NUR ---
FEMORAL IV LINE D/C'D. PRESSURE APPLIED TO SITE---HEMOSTASIS ACHIEVED. DSD APPLIED.
--- NOTE | 2017-07-09 15:30 | NUR ---
PT. REFUSING DRESSING CHANGE TO LEFT GREAT TOE, REFUSED TO ALLOW DISCHARGE PHOTOS. DRESSING TO LEFT GREAT TOE CLEAN DRY AND INTACT. PT. WILL LEAVE AMA.
[2017-07-09 15:40] VITALS: BP 179/110
== END 2017-07-09 15:45 | disposition home or self-care (01) | DRG 91 ==
LOC: ER 03:29 → TELE-TD 07:36 → MED 07-08 09:45
PROVIDERS: ADMIT Internal Medicine; ATTEND Internal Medicine
PROC: 06HM33Z Insertion of Infusion Device into Right Femoral Vein, Percutaneous Approach (ICD-10-PCS; principal; 2017-07-07)
DX: G92 Toxic encephalopathy (principal); N17.0 Acute kidney failure with tubular necrosis; F11.23 Opioid dependence with withdrawal; E44.0 Moderate protein-calorie malnutrition; E11.42 Type 2 diabetes mellitus with diabetic polyneuropathy; T50.905A Adverse effect of unspecified drugs, medicaments and biological substances, initial encounter; Y92.230 Patient room in hospital as the place of occurrence of the external cause; E11.65 Type 2 diabetes mellitus with hyperglycemia; E11.610 Type 2 diabetes mellitus with diabetic neuropathic arthropathy; E78.5 Hyperlipidemia, unspecified; Z79.899 Other long term (current) drug therapy; Z79.4 Long term (current) use of insulin; E11.621 Type 2 diabetes mellitus with foot ulcer; L97.529 Non-pressure chronic ulcer of other part of left foot with unspecified severity; I67.2 Cerebral atherosclerosis; G47.30 Sleep apnea, unspecified; E86.9 Volume depletion, unspecified; R47.02 Dysphasia; E83.39 Other disorders of phosphorus metabolism; E02 Subclinical iodine-deficiency hypothyroidism; I15.9 Secondary hypertension, unspecified; D64.9 Anemia, unspecified; D75.89 Other specified diseases of blood and blood-forming organs; Z87.81 Personal history of (healed) traumatic fracture; T39.395A Adverse effect of other nonsteroidal anti-inflammatory drugs [NSAID], initial encounter; Y92.89 Other specified places as the place of occurrence of the external cause
CPT/HCPCS: 36415; 36600; 70030-TC; 70450; 70551; 71010; 80307; 83605; 83735; 84100; 84443; 85025; 93005; 95819; 97530; C1751; G0480; G0480-TC; J1650; J1815; J2310; J2405; J7030; J7042